=== PATIENT | male | born 1955 | race Caucasian/White ===

== ENCOUNTER 2017-06-20 10:56 | Emergency (ER) | payer BC ==
[2017-06-20 11:06] VITALS: TEMP 97.7; BMI 26.4
[2017-06-20 11:10] LABS: PH,URINE 5.5 (4.5-8); URINE APPEARANCE Clear; URINE BILIRUBIN Negative (NEGATIVE); URINE BLOOD Trace-intact (NEGATIVE); URINE COLOR YELLOW; URINE GLUCOSE (UA) 2+ (NEGATIVE); URINE KETONE Negative (NEGATIVE); URINE LEUK ESTERASE Negative (NEGATIVE); URINE NITRITE Negative (NEGATIVE); URINE PROTEIN Negative (NEGATIVE); URINE UROBILINOGEN 0.2 (0.2-1.0)
--- NOTE | 2017-06-20 11:19 | PDOC ---
History of Present Illness - General Chief Complaint: Urinary Problem Stated Complaint: DIFFICULTY URINATING - History of Present Illness Initial Comments: 06/20/17 11:19 Mr. Tran is a 62 yo male with a significant pmh of BPH who presents with a one day history of urgency and dribbling urine. He says he has not been able to urinate completely since last night and is in a lot of discomfort. Tavon: NKDA Soc: Denies Past History - Past Medical History Allergies/Adverse Reactions: Allergies Allergy/AdvReac Type Severity Reaction Status Date / Time No Known Allergies Allergy Verified 06/20/17 10:58 Home Medications: Ambulatory Orders Metformin HCl [Glucophage -] 500 mg PO TID 05/31/13 Anemia: No Asthma: No Cancer: No Cardiac Disorders: No CVA: No COPD: No CHF: No Dementia: No Diabetes: Yes (x 3 yrs) GI Disorders: No Disorders: No HTN: No Hypercholesterolemia: No Liver Disease: No Seizures: No Thyroid Disease: No - Surgical History Abdominal Surgery: No Appendectomy: No Cardiac Surgery: No Cholecystectomy: No Lung Surgery: No Neurologic Surgery: No Orthopedic Surgery: No - Psycho/Social/Smoking Cessation Hx Anxiety: No Suicidal Ideation: No Smoking History: Never smoked Have you smoked in the past 12 months: No Hx Alcohol Use: (rare) Drug/Substance Use Hx: No Substance Use Type: None Hx Substance Use Treatment: No Review of Systems - Review of Systems Comments:: 06/20/17 11:37 GENERAL/CONSTITUTIONAL: No fever or chills. No weakness. HEAD, EYES, EARS, NOSE AND THROAT: No change in vision. No ear pain or discharge. No sore throat. CARDIOVASCULAR: No chest pain or shortness of breath RESPIRATORY: No cough, wheezing, or hemoptysis. GASTROINTESTINAL: No nausea, vomiting, diarrhea or constipation. GENITOURINARY: 1 day inability to completely void. Dribbling reported with frequency. MUSCULOSKELETAL: No joint or muscle swelling or pain. No neck or back pain. SKIN: No rash NEUROLOGIC: No headache, vertigo, loss of consciousness, or change in strength/ sensation. ENDOCRINE: No increased thirst. No abnormal weight change HEMATOLOGIC/LYMPHATIC: No anemia, easy bleeding, or history of blood clots. ALLERGIC/IMMUNOLOGIC: No hives or skin allergy. *Physical Exam - Physical Exam Comments: 06/20/17 11:37 GENERAL: Awake, alert, and fully oriented, in no acute distress HEAD: No signs of trauma, normocephalic, atraumatic EYES: PERRLA, EOMI, sclera anicteric, conjunctiva clear ENT: Auricles normal inspection, hearing grossly normal, nares patent, oropharynx clear without exudates. Moist mucosa NECK: Normal ROM, supple, no lymphadenopathy, JVD, or masses LUNGS: No distress, speaks full sentences, clear to auscultation bilaterally HEART: Regular rate and rhythm, normal S1 and S2, no murmurs, rubs or gallops, peripheral pulses normal and equal bilaterally. ABDOMEN: Full and tender diffusely. Bladder at approximate level of umbilicus. EXTREMITIES: Normal inspection, Normal range of motion, no edema. No clubbing or cyanosis. NEUROLOGICAL: Cranial nerves II through XII grossly intact. Normal speech, normal gait, no focal sensorimotor deficits SKIN: Warm, Dry, normal turgor, no rashes or lesions noted. ED Treatment Course - LABORATORY CBC & Chemistry Diagram: 06/20/17 11:39 06/20/17 11:39 Medical Decision Making - Medical Decision Making 06/20/17 11:38 Mr. Tran presents with a 1 day history of urinary retention he says is similar to his last (and only) other episode of BPH. He is currently resting comfortably with 525 initial cc's of urine. 06/20/17 12:11 Total 1125 cc's voided. Sending home with leg bag with instructions to f/u tomorrow with urologist. *DC/Admit/Observation/Transfer Diagnosis at time of Disposition: BPH (benign prostatic hyperplasia) Qualifiers: Lower urinary tract symptom presence: symptoms present Lower urinary tract symptom detail: urinary retention Qualified Code(s): N40.1 - Benign prostatic hyperplasia with lower urinary tract symptoms - Discharge Dispostion Condition at time of disposition: Stable - Referrals Referrals: Tapan Freire MD [Staff Physician] - - Patient Instructions Printed Discharge Instructions: DI for Urinary Retention in Men Additional Instructions: Please return if any increase in pain or fever. - Attestations Physician Attestion: 06/20/17 12:33 I, Dr. Magen Devi, attest that this document has been prepared under my direction and personally reviewed by me in its entirety. I further attest, that it accurately reflects all work, treatment, procedures and medical decision -making performed by me.
[2017-06-20 11:25] LABS: URINE BACTERIA FEW /hpf (NEGATIVE); URINE WBC 0-2 (3-5)
--- NOTE | 2017-06-20 11:38 | PDOC ---
Attending Attestation - Resident Resident Name: Magen Devi - ED Attending Attestation I have performed the following: I have examined & evaluated the patient, The case was reviewed & discussed with the resident, I agree w/resident's findings & plan, Exceptions are as noted - HPI HPI: 06/20/17 11:37 Agree with the resident's HPI as documented in the electronic medical record. - Physicial Exam PE: 06/20/17 11:37 Agree with the resident's physical examination as documented in the electronic medical record. - Medical Decision Making 06/20/17 11:37 62-year-old male with history of type 2 diabetes presents to the emergency department with inability to urinate since this morning and lower abdominal discomfort. Differential diagnosis includes but is not limited to: Urinary retention secondary to BPH, UTI, electrolyte abnormality, toxic/metabolic derangement. Plan: 1. Labs 2. Gutierrez catheter insertion 3. Urine analysis and urine culture 4. Observe and reevaluate Addendum: Gutierrez catheter was placed with immediate 500 mL of clear urine output. The patient is feeling improved and has resolution of his lower abdominal pain. 06/20/17 12:38 Labs were reviewed and are noted in the EMR. Will discharge home with the gutierrez catheter in place and a leg bag. The patient has been referred to for outpatient follow-up and was advised to return to the ED if his symptoms persist , worsen or new symptoms arise.
[2017-06-20 11:48] VITALS: BP 144/90; PULSE 60
[2017-06-20] MEDS ORDERED: HEMOQUE TEST 1 EACH EACH ONE (11:51)
[2017-06-20 12:09] LABS: BASOPHIL 0.2 % (0-2.0); EOSINOPHIL 0.4 % (0-4.5); MCH 30.1 pg (25.7-33.7); MCHC 35.8 g/dl (32.0-35.9); MEAN PLT VOLUME 8.1 fl (7.5-11.1); NEUTROPHILS 80.7 % (42.8-82.8); PLATELET COUNT 126 K/MM3 (134-434); RDW 11.6 % (11.9-15.9); WHITE BLOOD COUNT 5.9 K/mm3 (4.0-10.8)
[2017-06-20 12:14] LABS: ANION GAP 6 (8-16); CALCIUM 9.2 mg/dl (8.4-10.2); CO2 26 mmol/L (22-28); CREATININE 0.9 mg/dl (0.6-1.3); GLUCOSE,RANDOM 210 mg/dl (74-106); MAGNESIUM 1.8 mg/dL (1.8-2.4)
== END 2017-06-20 12:45 | disposition home or self-care (01) ==
LOC: FER 10:56
DX: N40.1 Benign prostatic hyperplasia with lower urinary tract symptoms (principal); E11.9 Type 2 diabetes mellitus without complications; Z79.84 Long term (current) use of oral hypoglycemic drugs
CPT/HCPCS: 36415; 80048; 81003; 81015; 83735; 84100; 85025; 87086; 99283-25

== ENCOUNTER 2019-06-01 08:28 | Day surgery (SDC) | payer BC ==
[2019-05-31 16:25] VITALS: BMI 25.8
[2019-06-01] MEDS ORDERED: ONDANSETRON 4 MG/2 ML VIAL IVPUSH PRN (10:20)
[2019-06-01] MEDS ORDERED: LACTATED RINGERS SOLUTION 1,000 ML IV SCH (10:30)
[2019-06-01] MEDS ORDERED: MIDAZOLAM HCL 2 MG/2 ML SINGLE DOSE VIAL ONE ×2 (10:44)
[2019-06-01] MEDS ORDERED: ceFAZolin 2 GRAM PREMIX BAG IVPB ONE (10:45)
[2019-06-01] MEDS ORDERED: ceFAZolin SODIUM 1 GM VIAL ONE ×2 (10:53)
[2019-06-01] MEDS ORDERED: oxyCODONE HCL 5 MG TABLET PO PRN (11:57)
--- NOTE | 2019-06-01 11:59 | OP ---
Operative Note - Note: Operative Date: 06/01/19 Pre-Operative Diagnosis: BPH Operation: Bipolar TURP/TURVP Post-Operative Diagnosis: Same as Pre-op Anesthesia: Spinal Estimated Blood Loss (mls): 20 Drains & Tubes with Location: [address] Operative Report Dictated: Yes
[2019-06-01] MEDS ORDERED: ELECTROLYTE-148 SOLN 1,000 ML IV SCH (12:00)
--- NOTE | 2019-06-01 12:54 | OP ---
DATE OF OPERATION: 06/01/2019 PREOPERATIVE DIAGNOSES: Benign prostatic hypertrophy with obstructive urinary symptoms and history of retention. POSTOPERATIVE DIAGNOSES: Benign prostatic hypertrophy with obstructive urinary symptoms and history of retention. PROCEDURE: Cystoscopy, bipolar transurethral resection and vaporization of prostate. SURGEON: Juancarlos Larkin MD INDICATION: Patient is a 64-year-old male with obstructive urinary symptoms, failed medication, and history of retention. After reviewing treatment options, patient elected to undergo bipolar TURP/TURVP. Understood the risks of bleeding, infection, impotence, incontinence, stricture formation, potential need for additional procedure, potential urinary retention, potential injury to adjacent organs. After informed consent was obtained, patient was taken to the OR, placed supine on the operating table. After cardiac monitoring was administered, the spinal anesthetic was then given. He was prepped and draped in dorsal lithotomy position. The meatus was bit narrowed and needed to be dilated with sounds to 20-Norwegian. At this point then, a 26-sheath resectoscope was inserted into the urethra with the visual obturator. The prostatic urethra was 4-5 cm and visually occlusive with an enlarged median bar. The bladder was visualized. No tumors or stones noted in the bladder. Attention was turned to the median bar tissue. This was resected with the loop until it was level with the bladder, and then, the lateral lobe tissue was resected as well. All the prostate chips were removed with the Karis evacuator and sent to pathology for analysis. Then, using the roller bar electrode, vaporization was carried out as well as coagulation. There was no resection or vaporization within 1 cm of verumontanum to minimize the chance of incontinence. With the resectoscope situated just past the verumontanum, looking into the bladder, a wide-open channel was seen. There was no injury to the ureteral orifices or the bladder. Resectoscope was then removed, and a 24-Norwegian 2-way Mar[place]illa was then placed to straight drainage. Marine-tinged urine was retrieved. Patient was awoken from anesthesia and transferred to recovery in stable condition without CBI. JUANCARLOS LARKIN M.D. [id number]
[2019-06-01 17:32] VITALS: BP 128/70; PULSE 64; TEMP 97.8
--- NOTE | 2019-06-06 13:20 | PATH ---
Surgical Pathology Report Patient Name: RONALDO LANDERS [facility]. Rec. #: [id number] /Age/Gender: 1955 (Age: 64) / M Account: [id number] Location: [facility] SURGICAL Taken: 06/01/2019 Received: 06/02/2019 Reported: 06/06/2019 Physicians: Vasquez Arroyo M.D. Specimen(s) Received RESECTED PROSTATE Clinical History Benign prostate hypertrophy Final Diagnosis PROSTATE, TRANSURETHRAL RESECTION: BENIGN PROSTATIC TISSUE SHOWING CYSTIC CHANGES, ACINAR ATROPHY AND STROMAL HYPERPLASIA. Electronically Signed Jess Pretty M.D. Gross Description Received in formalin labeled "resected prostate," is a 5 g, 6.0 x 4.5 x 0.8 cm aggregate of jeffers, firm to rubbery portions of tissue, consistent with prostate chips. The formalin is filtered and the specimen is entirely submitted in 6 cassettes. DL/06/02/2019 saudi/06/02/2019
== END 2019-06-01 17:37 | disposition home or self-care (01) ==
LOC: JASU-SURG 08:28
PROVIDERS: ATTEND Urology
PROC: 0VT08ZZ Resection of Prostate, Via Natural or Artificial Opening Endoscopic (ICD-10-PCS; principal; 2019-06-01 10:00)
DX: N40.1 Benign prostatic hyperplasia with lower urinary tract symptoms (principal); R33.8 Other retention of urine; E11.9 Type 2 diabetes mellitus without complications; I10 Essential (primary) hypertension; Z79.84 Long term (current) use of oral hypoglycemic drugs
CPT/HCPCS: 82962; 88305-TC; 94760

== ENCOUNTER 2023-07-05 10:26 | Day surgery (SDC) | payer BC ==
[2023-06-30 14:14] VITALS: BMI 25.1
[2023-07-05 10:38] VITALS: TEMP 96.6
[2023-07-05 13:04] VITALS: BP 113/68; PULSE 78; RESP 20
== END 2023-07-05 12:35 | disposition home or self-care (01) ==
LOC: FASU-ENDO 10:26
PROVIDERS: ATTEND Internal Medicine Gastroenterology
PROC: 0DJD8ZZ Inspection of Lower Intestinal Tract, Via Natural or Artificial Opening Endoscopic (ICD-10-PCS; principal; 2023-07-05 11:55)
DX: Z12.11 Encounter for screening for malignant neoplasm of colon (principal); Z80.0 Family history of malignant neoplasm of digestive organs; K57.30 Diverticulosis of large intestine without perforation or abscess without bleeding
CPT/HCPCS: 82962

== ENCOUNTER 2024-08-09 08:05 | Day surgery (SDC) | payer BC ==
[2024-08-07 13:27] VITALS: BMI 23.6
[2024-08-09 08:49] VITALS: RESP 18; TEMP 97
[2024-08-09 10:32] VITALS: BP 106/57; PULSE 85
== END 2024-08-09 10:43 | disposition home or self-care (01) ==
LOC: FASU-ENDO 08:05
PROVIDERS: ATTEND Internal Medicine Gastroenterology
PROC: 0DB78ZX Excision of Stomach, Pylorus, Via Natural or Artificial Opening Endoscopic, Diagnostic (ICD-10-PCS; 2024-08-09)
PROC: 0DB68ZX Excision of Stomach, Via Natural or Artificial Opening Endoscopic, Diagnostic (ICD-10-PCS; 2024-08-09)
PROC: 0DB98ZX Excision of Duodenum, Via Natural or Artificial Opening Endoscopic, Diagnostic (ICD-10-PCS; principal; 2024-08-09 09:44)
DX: K29.60 Other gastritis without bleeding (principal)
CPT/HCPCS: 82962; 88305-TC; 88341-TC; 88342-TC